=== PATIENT | female | born 1950 | race Caucasian/White ===

== ENCOUNTER 2017-08-02 06:11 | Day surgery (SDC) | payer MEDICARE, OTHER ==
[~2017-08-02] VITALS: Ht 160 cm; Wt 53.5 kg
[~2017-08-02 06:11] MED LIST: BEPREVE10 ML BOTHEYES; CALCIUM PO; CHOL10002 PO; CYCL0.05OP BOTHEYES; Multiple Vitam1 EAC1 PO; Omega 3 Fish O1 EACH PO
== END 2017-08-02 22:43 | disposition home or self-care (01) ==
LOC: ORSCMMR 06:11
PROVIDERS: Surgery
PROC: 0WUF0JZ Supplement Abdominal Wall with Synthetic Substitute, Open Approach (ICD-10-PCS; principal; 2017-08-02 07:30)
DX: K43.6 Other and unspecified ventral hernia with obstruction, without gangrene (principal); I49.8 Other specified cardiac arrhythmias
CPT/HCPCS: 93005; 93010; 93287; C1781; J0690; J1100; J1885; J2250; J2405; J3010; J7120

== ENCOUNTER → 2019-09-30 | Outpatient (CLI) | payer MEDICARE, OTHER ==
[2019-10-03 11:10] LABS: HPV 16 Negative (Negative); HPV 18 Negative (Negative); HPV OTHER HR TYPES Negative (Negative)
== END | disposition home or self-care (01) ==
LOC: LAB 16:42 → LAB SHORT 16:42
PROVIDERS: Obstetrics & Gynecology
DX: Z09 Encounter for follow-up examination after completed treatment for conditions other than malignant neoplasm (principal); Z87.42 Personal history of other diseases of the female genital tract
CPT/HCPCS: 87624; 88142

== ENCOUNTER 2022-07-13 07:49 | Day surgery (SDC) | payer MEDICARE, BC ==
[~2022-07-13] VITALS: Ht 160 cm; Wt 52.8 kg
[2022-07-13] MEDS ORDERED: MELO7.5 PO (08:01)
[2022-07-13] MEDS ORDERED: ROSU5 (08:01)
[2022-07-13] MEDS ORDERED: MULTI-VITAMIN1 EAC2 (08:01)
[2022-07-13] MEDS ORDERED: FISH OIL 1,2001 EAC7 (08:01)
[2022-07-13] MEDS ORDERED: Preservision A1 EACH (08:02)
== END 2022-07-13 10:12 | disposition home or self-care (01) ==
LOC: ORSCSDS 07:49
PROVIDERS: Internal Medicine Gastroenterology
PROC: 0DJD8ZZ Inspection of Lower Intestinal Tract, Via Natural or Artificial Opening Endoscopic (ICD-10-PCS; principal; 2022-07-13 09:00)
DX: Z12.11 Encounter for screening for malignant neoplasm of colon (principal); Z86.010 Personal history of colon polyps; K57.30 Diverticulosis of large intestine without perforation or abscess without bleeding; Z79.899 Other long term (current) drug therapy
CPT/HCPCS: J2704; J7120